=== PATIENT | male | born 1980 | race Hispanic/Latino ===

== ENCOUNTER 2018-03-20 14:03 | Inpatient (IN) | payer BC ==
[~2018-03-20 14:03] MED LIST: ISOVUE-370 76%-LOCM 1 ML ONE
[2018-03-20 14:56] LABS: #Eosinphils 0.3 thou/uL (0.0-0.7); #Lymphocytes 1.7 thou/uL (1.20-3.40); #Monocytes 0.6 thou/uL (0.11-0.59); #Neutrophils 5.4 thou/uL (1.40-6.50); %Basophils 0.5 % (0.0-1.0); %Eosinophils 3.4 % (0.0-10.0); %Monocytes 7.3 % (0.0-10.0); %Neutrophils 67.8 % (42.0-75.0); Mean Corpuscular HGB CONC 34.8 g/dL (32.0-36.0); Mean Corpuscular Hemoglobin 31.8 pg (27.0-31.0); Mean Corpuscular Volume 91.3 fL (78.0-98.0); Mean Platelet Volume 5.8 fL (7.4-10.4); Platelet Count 211 thou/uL (130-400); RBC Distribution Width 10.7 % (11.5-14.5); Red Blood Cell (RBC) Count 4.73 mill/uL (4.70-6.10); White Blood Cell (WBC) Count 7.9 thou/uL (4.8-10.8)
[2018-03-20 15:00] LABS: PTT 25.3 SEC (22.9-36.1)
[2018-03-20 15:12] LABS: ALT (SGPT) 29 U/L (8-55); AST (SGOT) 17 U/L (5-34); Albumin 4.5 g/dL (3.5-5.0); Alkaline Phosphatase 61 U/L (40-150); Anion Gap 14 mmol/L (10-20); BUN (Urea Nitrogen) 16 mg/dL (8.9-20.6); Bilirubin, Total 0.8 mg/dL (0.2-1.2); Calc. Creatinine Clearance 0 mL/min (70-130); Calcium 9.8 mg/dL (7.8-10.44); Carbon Dioxide 25 mmol/L (22-29); Chloride 104 mmol/L (98-107); Estimated GFR-MDRD Greater than 90; Glucose 125 mg/dL (70-105); Protein, Total 7.5 g/dL (6.0-8.3); Sodium 139 mmol/L (136-145)
[2018-03-20] MEDS ORDERED: Acetaminophen 500 MG TAB ONE (15:57)
--- NOTE | 2018-03-20 16:27 | ULT ---
BILATERAL LOWER EXTREMITY VENOUS DOPPLER 03/20/18 HISTORY: Lower extremity swelling. COMPARISON: None. TECHNIQUE: Real time garcia scale, color flow and spectral analysis of the bilateral lower extremity venous system was performed. There is near complete thrombosis of the left lower extremity venous system. There is partial thrombo sis of the right common femoral and femoral veins. Moderate lower extremity edema in the left lower extremity. IMPRESSION: Near complete thrombosis of the left lower extremity venous system with partial thrombosis of the rig ht femoral vein. Code SAW [facility] 4:10 p.m. POS: [facility]
[2018-03-20] MEDS ORDERED: Enoxaparin Sodium 100 MG/ML SYRINGE ONE (16:28)
[2018-03-20 21:19] VITALS: BMI 26.2
--- NOTE | 2018-03-20 22:11 | CT ---
CT ANGIOGRAM OF THE CHEST 03/20/18 HISTORY: Extensive left lower extremity DVT. Hypotensive. Evaluate for pulmonary artery embolism. COMPARISON: None. TECHNIQUE: CT angiogram of the chest is performed in the axial plane. Three dimensional reformatted images are s ubmitted for interpretation. FINDINGS: Note is made of a prominent hemiazygos vein. The azygos vein at the level of the mediastinum is promi nent. No mediastinal lymphadenopathy or hematoma. Heart size is normal. No pericardial effusion. The visualized aorta is unremarkable. The visualized solid organs are also unremarkable with the exception of the left adrenal gland which measures 1.3 cm and has an attenuation coefficient of 31 Hounsfield units. Evaluation is incomplete. Adequate contrast opacification of the pulmonary arterial system to the level of the segmental arteri es. No filling defect to suggest thromboembolism. Trachea and central bronchi are patent. No masses o r consolidation. No pneumothorax or osseous abnormalities. IMPRESSION: 1. No evidence of pulmonary artery embolism to the level of the segmental arteries. 2. Prominence of the hemiazygos vein as well as the azygos vein at the level of the mediastinum. Significance is uncertain. Correlate clinically. 3. Indeterminate left adrenal nodule. Nonemergent noncontrast CT is recommended to assess for po ssible benign adenoma. If on the noncontrast sequence, the lesion is not a benign adenoma, postcontra st imaging can be performed. POS: [facility]
[2018-03-21] MEDS ORDERED: Milk Of Magnesia 30 ML UDCUP PO PRN (02:34)
[2018-03-21] MEDS ORDERED: Calcium Carbonate 500 MG ChewTAB PO PRN (02:34)
[2018-03-21] MEDS ORDERED: Acetaminophen 325 MG TAB PO PRN (02:34)
[2018-03-21] MEDS ORDERED: Ondansetron HCl/PF 4 MG/2 ML Vial IVP PRN (02:34)
[2018-03-21] MEDS ORDERED: HYDROcodone/Acetaminophen 5/325 mg Tablet PO PRN (02:34)
[2018-03-21] MEDS ORDERED: Ondansetron ODT 4 MG TAB PO PRN (02:34)
[2018-03-21] MEDS ORDERED: Mag-Al 1200 mg/1200 mg/30 ML UDCUP PO PRN (02:34)
[2018-03-21] MEDS ORDERED: Eucerin (Mineral Oil/Petrolatum,White) 30 gm Jar TOP PRN (02:37)
[2018-03-21] MEDS ORDERED: hydrALAZINE 20 MG/ML VIAL SLOW IVP PRN (02:37)
[2018-03-21] MEDS ORDERED: Enoxaparin Sodium 100 MG/ML SYRINGE SC SCH (04:30)
--- NOTE | 2018-03-21 09:00 | HP ---
DATE OF ADMISSION: 03/20/2018 Patient was seen and examined on 03/20/2018 PRIMARY CARE PHYSICIAN: Dr. Kenyon. Please note that patient was last seen by Dr. Kenyon in 07/2015 . Office records were reviewed. CHIEF COMPLAINT: Left lower extremity swelling of 1-day duration. HISTORY OF PRESENT ILLNESS: Patient is a 37-year-old male with factor V Leiden mutation presented to the hospital with left lower extremity swelling and pain over the last 24 hours. He denies any trau ma, fever, chills, or significant redness over his left leg. He has significant pain on ambulation. He denies any chest pain, shortness of breath, palpitations. In the emergency room, left lower extremity ultrasound was consistent with near complete thrombosis o f the left lower extremity venous system with partial thrombosis of the right femoral vein. The case was discussed with Dr. Edmonds who was covering for Dr. Kenyon who recommended hospital admission per ER notes. PAST MEDICAL HISTORY: 1. Factor V Leiden mutation. 2. Tobacco dependence. 3. History of DVT. 4. Questionable pulmonary artery blood clots when he was a child. PAST SURGICAL HISTORY: Reviewed with the patient and none. ALLERGIES: No known drug allergies. CURRENT HOME MEDICATIONS: Reviewed with the patient and none. SOCIAL HISTORY: Patient smokes up to half pack a day. No alcohol or drug use. 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 FAMILY HISTORY: Father with skin cancer. Mother with diabetes. REVIEW OF SYSTEMS: The following complete review of systems was negative, unless otherwise mentioned in the HPI or below: Constitutional: Weight loss or gain, ability to conduct usual activities. Sk in: Rash, itching. Eyes: Double vision, pain. ENT/Mouth: Nose bleeding, neck stiffness, pain, te nderness. Cardiovascular: Palpitations, dyspnea on exertion, orthopnea. Respiratory: Shortness of breath, wheezing, cough, hemoptysis, fever, or night sweats. Gastrointestinal: Poor appetite, abdo manuel pain, heartburn, nausea, vomiting, constipation, or diarrhea. Genitourinary: Urgency, frequen cy, dysuria, nocturia. Musculoskeletal: Pain, swelling. Neurologic/Psychiatric: Anxiety, depressi on. Allergy/Immunologic: Skin rash, bleeding tendency. PHYSICAL EXAMINATION: VITAL SIGNS: Temperature 98.3, respiration 15, pulse 86, blood pressure 112/78 with O2 saturation 95 % on room air. GENERAL: A 37-year-old male in mild distress due to left lower extremity pain. HEENT: Head, atraumatic, normocephalic. Sclerae anicteric. Moist mucous membrane, no oral lesion. NECK: Supple, no JVD appreciated. No carotid bruit. LUNGS: Clear to auscultation bilaterally. No wheezing, rales, or rhonchi. HEART: S1, S2 present. Regular rate and rhythm. No murmur, rubs, or gallops appreciated. ABDOMEN: Soft, nontender, bowel sounds present. EXTREMITIES: Right lower extremity with chronic skin changes from wound infection in the past that h as almost healed. Left lower extremity has significant swelling with tenderness. No significant zeke thema noted. NEUROLOGIC: Grossly nonfocal, moves all four extremities. PSYCHIATRY: Alert, awake, oriented x3. SKIN: Warm and dry. LYMPH NODES: No palpable lymph nodes in the neck. PERIPHERAL VASCULAR: Radial pulses palpable bilaterally. MUSCULOSKELETAL: No joint swelling or tenderness. LABORATORY FINDINGS: CBC showed WBC 7.9 with hemoglobin 15, platelet 211. PT, INR, PTT normal range . Chemistries showed sodium 139, potassium 4, chloride 104, bicarbonate 25, BUN 16, creatinine 0.82, glucose of 125. Left lower extremity ultrasound as discussed above. CT angiogram of the chest by m sherry review was negative for pulmonary embolism at the level of segmental arteries. There was a left ad renal nodule. He also had prominent hemiazygos vein as well as azygos vein at the level of mediastin um. He was told that he has good collateral circulation. Telemetry monitoring by my review showed s inus rhythm. IMPRESSION: 1. Extensive left lower extremity deep venous thrombosis. 2. Ongoing tobacco abuse. 3. Factor V Leiden mutation. 4. Indeterminate left adrenal nodule. Primary care physician advised to follow. 5. 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 6. History of medication noncompliance. PLAN: Patient will continue Lovenox. Patient has seen Dr. Molina in the past. We will consult Dr Negin Molina in a.m. Tobacco cessation was emphasized. We will let Dr. Molina decide whether he nee ds to be on Eliquis or Xarelto. Risks of anticoagulation discussed with the patient, he stated under standing. Pulmonary embolism has been ruled out. Plan of care was discussed with the patient in detail. He stated understanding.
[2018-03-21 11:41] LABS: Hemoglobin 14.8 g/dL (14.0-18.0); Platelet Count 193 thou/uL (130-400)
[2018-03-21 11:56] LABS: Calc. Creatinine Clearance 159 mL/min (70-130); Estimated GFR-MDRD Greater than 90
--- NOTE | 2018-03-21 13:53 | PDOC.PN ---
- Subjective Encounter Start Date: 03/21/18 Encounter Start Time: 13:51 Subjective: pt up in bed no complains - Objective Resuscitation Status: Resuscitation Status FULL:Full Resuscitation Vital Signs & Weight: Vital Signs (12 hours) Temp Pulse Resp BP Pulse Ox 03/21/18 08:59 98.3 F 60 16 96/52 L 93 L 03/21/18 08:00 98.3 F 60 16 03/21/18 04:00 97.8 F 58 L 18 103/52 L 96 Weight Weight 204 lb 3.2 oz Result Diagrams: 03/21/18 11:25 03/21/18 11:25 Phys Exam - Physical Examination HEENT: PERRLA, moist MMs, sclera anicteric, TM's clear, oral pharynx no lesions , 2+ tonsils Neck: no nodes, no JVD, supple, full ROM Respiratory: no wheezing, no rales, no rhonchi, wheezing present, clear to auscultation bilateral Cardiovascular: RRR, no significant murmur, no rub, gallop, irregular Gastrointestinal: soft, non-tender, no distention, positive bowel sounds right lower ext significant old healed scar, left thigh has erythema and mild swelling Neurological: non-focal, normal sensation, moves all 4 limbs Dx/Plan - Plan pt on lovonox will change to elisadieis tonjeb -: Awaiting hematology consult * .
[2018-03-21] MEDS: Sodium Chloride 0.9% 1,000 ML IV SCH (16:19)
[2018-03-21] MEDS ORDERED: Apixaban 5 MG TAB PO SCH (17:00)
--- NOTE | 2018-03-21 22:15 | CON ---
DATE OF CONSULTATION: 03/21/2018 REASON FOR CONSULTATION: DVT. HISTORY OF PRESENT ILLNESS: Mr. Teixeira is a pleasant 37-year-old gentleman, who saw Dr. Molina in 2 015 for a hypercoagulable state. He had 3 episodes of unprovoked thrombophlebitis involving the righ t lower extremity veins and he had post-phlebitic syndrome of his right lower extremity with a skin u lceration. He had heterozygosity for factor V Leiden and was also a heavy tobacco user. He was give n a prescription for Xarelto in 2014, which he states he took for a very short period of time; howeve r, he stopped due to wound care for his right lower extremity. He felt that it was bleeding and want ed to heal. He has not been on any anticoagulation since he saw Dr. Molina. He developed new left lower extremity swelling and pain and presented to the emergency room for evaluation. A lower extre mity ultrasound was performed, which showed a near complete thrombus of the left lower extremity veno us system. There was also a partial thrombus of the right common femoral and femoral veins. We were asked to see the patient regarding anticoagulation. PAST MEDICAL HISTORY: 1. Heterozygosity factor V Leiden. 2. History of unprovoked thrombophlebitis. 3. Tobacco dependence. PAST SURGICAL HISTORY: None. ALLERGIES: No known drug allergies. HOME MEDICATIONS: None. FAMILY HISTORY: Father had skin cancer. SOCIAL HISTORY: Single, lives with a significant other. Smoke every day. Social drinker. No illic it drug use. 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 REVIEW OF SYSTEMS: CONSTITUTIONAL: No fever, chills, night sweats, recent weight loss or gain. EYES: No blurred or double vision. ENT: No pain, hoarseness, sore throat, dysphagia. CARDIOVASCULAR: No chest pain, palpitations, syncope. RESPIRATORY: No shortness breath, dyspnea on exertion or orthopnea. GASTROINTESTINAL: No nausea, vomiting, diarrhea, constipation or abdominal pain. GENITOURINARY: No dysuria or hematuria. MUSCULOSKELETAL: No joint or back pain. SKIN: No rash or pruritus. HEMATOLOGICAL: Positive for blood clots in his legs. NEUROLOGIC: Denies weakness, headache, numbness, tingling or seizure activity. PSYCHIATRIC: No anxiety or depression. PHYSICAL EXAMINATION: VITAL SIGNS: Temperature is 98.3, pulse is 60, respiratory rate 16, BP is 96/52. He is 93% on room air. GENERAL: Well-developed, well-nourished male in no acute distress. HEENT: Normocephalic, atraumatic. Pupils equal and reactive to light. NECK: Supple. HEART: Regular rate and rhythm. LUNGS: Clear. ABDOMEN: Soft, nontender, bowel sounds are positive. EXTREMITIES: He has got mild erythema and firmness in his left thigh, healing ulcer in his right low er extremity. SKIN: There is no rash. HEMATOLOGIC: No petechia or purpura. NEUROLOGICAL: Nonfocal. PSYCHIATRIC: The patient is alert and oriented and appropriate. PERTINENT LABORATORY AND X-RAYS: Current WBCs are 7.9, hemoglobin 14.8, hematocrit 45.4, platelet co unt is 193,000, 68% neutrophils, 21% lymphocytes. PT 13.0, INR is 1.0, PTT is 25.3. Sodium 139, pot assium 4.0, chloride 104, CO2 is 25, BUN is 16, creatinine 0.84, calcium is 9.8, total bilirubin 0.8, AST is 17, ALT is 29, alkaline phosphatase is 61. Serum total protein 7.5, albumin 4.5, globulin 3. 0. Radiology per HPI. ASSESSMENT: 1. History of multiple thrombophlebitis. 2. Heterozygosity for factor V Leiden. 3. Postphlebitic syndrome in his right lower extremity. 4. Tobacco use. 5. Noncompliance with anticoagulation. 6. New left lower extremity DVT. DISCUSSION: Patient needs lifelong anticoagulation. He has been placed on Eliquis, which will begin today. He can be discharged tomorrow. He will follow up in our clinic in 4-6 weeks for a recheck. He was instructed on the risk and benefits of anticoagulation and instructed to stop smoking.
[2018-03-22] MEDS: Sodium Chloride 0.9% 1,000 ML IV SCH ×2 (01:55→11:28)
[2018-03-22 05:49] LABS: Platelet Count 172 thou/uL (130-400)
[2018-03-22] MEDS ORDERED: Apixaban 5 MG TAB PO SCH (09:00)
[2018-03-22 10:24] VITALS: BP 97/52; TEMP 98.7
[2018-03-22] MEDS ORDERED: traMADol HCl 50 MG TAB PO PRN (11:19)
--- NOTE | 2018-03-24 02:17 | DIS ---
DATE OF ADMISSION: 03/20/2018 DATE OF DISCHARGE: 03/22/2018 DISCHARGE DIAGNOSES: As of the followin. Acute left lower leg deep vein thrombosis. 2. Heterozygous factor V Leiden. 3. Tobacco use. HISTORY OF PRESENT ILLNESS AND HOSPITAL COURSE: The patient is a very pleasant 37-year-old male with a history of heterozygous factor V Leiden who has had multiple DVTs, but never had a PE, who present s to the hospital with complaints of left lower extremity swelling. The patient initially had a veno gram that indicated near complete thrombosis of the left lower extremity venous with partial thrombos is of the right femoral vein. Patient at this time also had a CTA of the chest, which indicated no e vidence of pulmonary artery embolism at the level of the segmental arteries. Prominence of the hemia zygos veins as well as azygos veins at the level of the mediastinal significance is uncertain. CT al so mentioned a left adrenal nodule. The patient at this time was seen by Hematology/Oncology who ask ed to follow the patient as an outpatient. He was initially put on Lovenox and changed to Eliquis. PHYSICAL EXAMINATION: VITAL SIGNS: As the followin.0, 58, 18, 90% on room air, 97/52. GENERAL: He is awake, alert, oriented x3. He does not appear in distress. CARDIOVASCULAR: S1, S2 present. No murmurs, rubs, or gallops. ABDOMEN: Soft, nontender. Bowel sounds are present x2. EXTREMITIES: He does have significant swelling on his left lower extremity. Pedal pulses are presen t and his right extremity, he does have some old healing wounds. HOME MEDICATIONS: As the following tramadol 25 mg b.i.d., Eliquis 10 mg twice a day for 7 days, followed by 5 mg twice a day after completing a 7-day course. Again, the patient will follow up with PCP as needed and also with Hematology/Oncology. He was given instructions on Eliquis.
== END 2018-03-22 13:49 | disposition home or self-care (01) | DRG 300 ==
LOC: SCSER 14:03 → 2NO 21:03
PROVIDERS: ADMIT Internal Medicine; ATTEND Internal Medicine
DX: I82.402 Acute embolism and thrombosis of unspecified deep veins of left lower extremity (principal); D68.51 Activated protein C resistance; I87.011 Postthrombotic syndrome with ulcer of right lower extremity; L97.819 Non-pressure chronic ulcer of other part of right lower leg with unspecified severity; I82.411 Acute embolism and thrombosis of right femoral vein; F17.210 Nicotine dependence, cigarettes, uncomplicated; E27.9 Disorder of adrenal gland, unspecified; Z86.718 Personal history of other venous thrombosis and embolism; Z91.14 Patient's other noncompliance with medication regimen
CPT/HCPCS: 36415; 71275; 80053; 82565; 85014; 85018; 85025; 85049; 85610; 85730; 93970; 96372; A4216; J1650